=== PATIENT | male | born 1945 | race Caucasian/White ===

== ENCOUNTER → 2017-11-12 | Outpatient (CLI) | payer MEDICARE ==
[2017-11-12 15:07] LABS: HCT 46.3 % (39.0-53.0); HGB 15.9 gm/dL (13.0-17.5); MCH 31.4 pg (25.0-35.0); MCHC 34.3 g/dL (31.0-37.0); MCV 91.7 fL (80.0-100.0); Mean Platelet Volume 6.1; Platelet Count 155 k/uL (150-450); RBC 5.04 m/uL (4.30-5.90); RDW 12.9 % (11.5-15.5); WBC 6.4 k/uL (3.8-10.6)
[2017-11-12 15:08] LABS: Appearance,Urine Clear (Clear); Bilirubin,Urine Negative (Negative); Blood,Urine Small (Negative); Color,Urine Yellow; Glucose,Urine (UA) Negative (Negative); Ketones,Urine Negative (Negative); Leukocyte Esterase,Urine Negative (Negative); Mucus,Urine Rare /hpf; Nitrite,Urine Negative (Negative); Protein,Urine Negative (Negative); RBC,Urine 1 /hpf (0-5); Specific Gravity,Urine 1.019 (1.001-1.035); Urobilinogen,Urine <2.0 mg/dL (<2.0); WBC,Urine 1 /hpf (0-5)
[2017-11-12 15:14] LABS: INR 1.1 (<1.2); Partial Thromboplastin Time 23.5 sec (22.0-30.0); Prothrombin Time 10.4 sec (9.0-12.0)
[2017-11-12 15:39] LABS: Calcium 9.1 mg/dL (8.4-10.2); Total Bilirubin 0.6 mg/dL (0.2-1.3); Total Protein 6.5 g/dL (6.3-8.2)
== END | disposition home or self-care (01) ==
LOC: LABPAT 14:05
PROVIDERS: ATTEND Orthopaedic Surgery
DX: Z01.812 Encounter for preprocedural laboratory examination (principal); M16.11 Unilateral primary osteoarthritis, right hip
CPT/HCPCS: 36415; 80053; 81001; 85027; 85610; 85730; 87070

== ENCOUNTER → 2017-11-13 | Outpatient (CLI) | payer MEDICARE | END | disposition home or self-care (01) | LOC: LABWHC1 14:10 | PROVIDERS: ATTEND Orthopaedic Surgery | DX: Z01.812 Encounter for preprocedural laboratory examination (principal); M16.11 Unilateral primary osteoarthritis, right hip | CPT/HCPCS: 86850; 86870; 86880; 86900; 86901 ==

== ENCOUNTER 2017-11-15 09:50 | Inpatient (IN) | payer MEDICARE ==
[2017-11-05 14:34] VITALS: BMI 27.3
[2017-11-22] MEDS ORDERED: ceFAZolin IN SWFI 2 GM/20 ML SYRINGE IVP ONE (05:00)
[2017-11-22] MEDS ORDERED: DEXAMETHASONE SOD PHOSPHATE 10 MG/ML 1 ML VIAL IV ONE (05:47)
[2017-11-22] MEDS ORDERED: HYDROmorphone 0.5 MG/0.5 ML SYRINGE IVP PRN ×4 (05:47→08:42)
[2017-11-22] MEDS ORDERED: ONDANSETRON 4 MG/2 ML VIAL IVP ONE (05:47)
[2017-11-22] MEDS ORDERED: ROPIVACAINE 246.25 MG, EPINEPHrine 0.5 MG, KETOROLAC 30 MG, cloNIDine HCL/PF 80 MCG, WA... MISCELLANE ONE ×5 (06:12)
[2017-11-22] MEDS: LACTATED RINGERS 1,000 ML IV SCH (06:26)
[2017-11-22] MEDS ORDERED: LIDOCAINE 1% INJ 10MG/ML (20 ML MDV) ONE (06:59)
[2017-11-22] MEDS ORDERED: SODIUM CHLORIDE 0.9% 100 ML BAG ONE (06:59)
[2017-11-22] MEDS ORDERED: SODIUM CHLORIDE 0.9% IRRIG 1,000 ML BTL IRRIGATION ONE (06:59)
[2017-11-22] MEDS ORDERED: PROPOFOL 10 MG/ML 20 ML VIAL IV ONE ×3 (06:59→17:56)
[2017-11-22] MEDS ORDERED: HEPARIN SODIUM,PORCINE 10,000 UNIT/ML 1 ML VIAL ONE (06:59)
[2017-11-22] MEDS ORDERED: MIDAZOLAM 2 MG/2 ML VIAL ONE (06:59)
[2017-11-22] MEDS ORDERED: TRANEXAMIC ACID 1,000 MG/10 ML VIAL ONE (06:59)
[2017-11-22] MEDS ORDERED: diphenhydrAMINE 50 MG/ML 1 ML VIAL ONE (06:59)
[2017-11-22] MEDS ORDERED: LACTATED RINGERS 1,000 ML IV ONE ×2 (07:53→17:56)
--- NOTE | 2017-11-22 08:26 | FL ---
Fluoroscopy HISTORY: Hip replacement 36 seconds fluoroscopy time supplied to the referring clinician. 2 intraoperative C-arm images docum ent the procedure. See dictated report from orthopedic surgery.
--- NOTE | 2017-11-22 08:27 | XR ---
Limited right hip HISTORY: Hip replacement 2 intraoperative C-arm images document the procedure.
--- NOTE | 2017-11-22 08:29 | P.OP ---
Date of Procedure: 11/22/17 Preoperative Diagnosis: Severe osteoarthritis right hip Postoperative Diagnosis: Severe osteoarthritis right hip Procedure(s) Performed: Right total hip arthroplasty with a direct anterior approach Implants: Dempsey and nephew Polarstem size 2 standard Dempsey [employer] Nephew R3, 3 hole acetabular shell, 54 mm [employer]psey [employer] Nephew reflection 6.5 mm cancellus screw, 20 mm, 25 mm [employer]psey [employer] Nephew R3, XLPE 20 acetabular liner [employer]psey [employer] Nephew Oxinium femoral head 36 m, +4 All components were press-fit. The articulation is Oxinium on polyethylene. Anesthesia: spinal Surgeon: Jaren Salvador [employer] Team Leader #1: Radha Acosta Estimated Blood Loss (ml): 150 (65 mL returned with Cell Saver) Pathology: other (Femoral head) Condition: stable Disposition: PACU Indications for Procedure: After failure of conservative treatment we discussed the surgical and nonsurgical treatment options at length. Patient wishes to proceed with a total hip arthroplasty with a direct anterior approach. Complications specific to this procedure were discussed at length, including but not limited to infection, leg length discrepancy, dislocation, and nerve injury. Patient is aware of all these complications and informed consent was obtained Operative Findings: The operative findings are consistent with severe osteoarthritis of the right hip Description of Procedure: Patient was seen and evaluated in the preoperative area, consent was reviewed, and the surgical site was marked with a skin marker. Patient was then brought to the operating room and given prophylactic antibiotics intravenously. 1 g of Tranexamic acid was also given. A spinal anesthetic was administered by the anesthesia department. The patient was then placed on the [place] table with the bony prominences well-padded. The hip area was then prepped and draped in usual sterile fashion. A universal timeout was then performed, which confirmed the patient's name, surgical site, ALLERGIES, and procedure being performed. Next the incision site was located at 1 cm distal and 1 cm lateral to the anterior superior iliac spine. The skin and subcutaneous tissues were sharply incised. Incision was carefully dissected down to the fascia overlying the tensor fascia taj muscle. This fascia was then incised in line with the incision. Next, using blunt finger dissection, the tensor fascia taj muscle was dissected off its investing fascia. The muscle was then carefully retracted laterally with a cobra retractor over the lateral neck of the femur. Next, the circumflex vessels were identified and cauterized using the AquaMantis device. The anterior hip capsule was then exposed. The capsule was then opened and an inverted T fashion. Cobra retractors were then placed intracapsularly. The proximal femur was then visualized. The femoral neck was then osteotomized appropriate level above the lesser trochanter. Small amount of traction was placed with the [place] table. A small wedge of bone was then removed from the remaining femoral head. Next, using a corkscrew femoral head was easily removed from the acetabulum. On gross visual inspection, the femoral head had complete loss of articular cartilage in multiple periarticular osteophytes. Attention was then turned to the acetabulum. the acetabulum was exposed and any remaining labrum was excised. Sequential reaming of the acetabulum was performed using fluoroscopic guidance. When the appropriate size was reached, a trial was then placed. The position and fit of the trial was checked with fluoroscopy. The trial was then removed. Then, using fluoroscopic guidance, the final implant was impacted at 20 of anteversion and 40 of abduction, and fully seated in the acetabulum. 2 screws were then placed in the acetabulum. Again fluoroscopy was used to check position of the screws. Next, the liner was then impacted, with a 20 elevated liner located in the anterior superior quadrant. Component locking was confirmed. Attention was then directed to the femur. With the aid of the [place] table, the femur was externally rotated to approximately 130, extended, and abducted under the opposite leg. A side hook was then placed under the proximal femur, and the side hook elevator was used to elevate the proximal femur. Retractors were then placed. A capsular release was performed, as well as a release of the conjoined tendon, which afforded excellent visualization of the proximal femur. Next, a box osteotome was used to lateralize the proximal femur. A stave mill hand was then used to locate the femoral canal. Sequential broaching was then performed with appropriate size which afforded excellent fixation in the proximal femur. A trial was then placed with appropriate head and neck, and the hip was gently reduced with the aid of the [place] table. Fluoroscopy was then used to check position of the components, as well as to ensure equal leg lengths. The hip was then gently dislocated and the trials were then removed. Final implants were then impacted and the hip was again reduced. Final fluoroscopic x-rays confirmed that the components were in anatomic position, as well as equal leg lengths. The hip was also taken through range of motion, and found to be stable. The hip was then copiously irrigated with antibiotic solution with pulsatile lavage. The hip was then irrigated with Irrisept solution. The soft tissues were then injected with a ropivacaine solution, which consisted of 246.25 mg of ropivacaine, 0.5 mg of epinephrine, 30 mg of Toradol, 80 g of clonidine, and 48.45 mL of sterile water, for a total of 100 mL of fluid injected. A second dose of 1 g of Tranexamic acid was also given. the fascia was then closed with 2-0 strata fix suture. The subcutaneous tissue was closed with 3-0 Vicryl. The subcuticular tissue was closed with 3-0 strata fix suture. The skin was then closed with Dermabond glue and a sterile silver dressing. The patient was then transferred to the recovery room in stable condition. The funeral director's assistant NEPTALI Menon was required due to the complexity of surgery, and the need for skilled surgical resident for positioning, draping, exposure, retraction, and closure of the wound.
[2017-11-22] MEDS ORDERED: DIAZEPAM 5 MG TAB PO PRN ×2 (08:42)
[2017-11-22] MEDS ORDERED: ONDANSETRON 4 MG/2 ML VIAL IVP PRN (08:42)
[2017-11-22] MEDS ORDERED: NALOXONE 0.4 MG/ML 1 ML VIAL IV PRN (08:42)
[2017-11-22] MEDS ORDERED: MAGNESIUM HYDROXIDE 2,400 MG/10 ML CUP PO PRN (08:42)
[2017-11-22] MEDS ORDERED: HYDROcodone/APAP 5-325MG 1 EACH TAB PO PRN (08:42)
--- NOTE | 2017-11-22 09:52 | XR ---
Limited right hip HISTORY: Status post right hip arthroplasty Single frontal view of the right hip Patient is status post right hip arthroplasty. There is anatomic alignment. Lucency present in the so ft tissues is compatible with postop state. IMPRESSION: Orthopedic follow-up.
[2017-11-22] MEDS: MELOXICAM 7.5 MG TAB PO SCH (14:23)
[2017-11-22] MEDS: ASPIRIN 325 MG TAB PO SCH ×2 (14:23→20:00)
[2017-11-22] MEDS: hydrOXYzine PAMOATE 25 MG CAP PO PRN ×2 (14:50→20:01)
[2017-11-22] MEDS: HYDROcodone/APAP 5-325MG 1 EACH TAB PO PRN ×2 (14:50→20:01)
[2017-11-22] MEDS: SODIUM CHLORIDE 0.9% 1,000 ML IV SCH ×2 (14:52→20:00)
[2017-11-22] MEDS: ceFAZolin IN SWFI 2 GM/20 ML SYRINGE IVP SCH (15:30)
--- NOTE | 2017-11-22 17:28 | XR ---
EXAMINATION TYPE: XR Hip Limited RT DATE OF EXAM: 11/22/2017 COMPARISON: Today HISTORY: Hadley a pop TECHNIQUE: Single view FINDINGS: There is a lateral superior dislocation of the prosthetic femoral head. No fracture seen. IMPRESSION: Dislocated hip prosthesis.
[2017-11-22] MEDS ORDERED: SUCCINYLCHOLINE CHLORIDE 100 MG/5 ML SYR IV ONE (17:56)
--- NOTE | 2017-11-22 18:24 | P.OP ---
Date of Procedure: 11/22/17 Preoperative Diagnosis: Dislocation right total hip arthroplasty Postoperative Diagnosis: Dislocation right total hip arthroplasty Procedure(s) Performed: Close reduction right total hip arthroplasty Anesthesia: MAC Surgeon: Jaren Salvador Wallpaper Consultant #1: Radha Acosta Pathology: none sent Condition: stable Disposition: PACU Indications for Procedure: This is a 72-year-old gentleman that had a right total hip arthroplasty performed earlier today. While the patient was up and walking after surgery, he became lightheaded and has a set him down he experienced immediate pain in his right hip. X-rays demonstrated a dislocation of his right total hip arthroplasty. After discussing the treatment options with him and his at length, I recommended a close reduction of his right hip under anesthesia. Informed consent was obtained. Operative Findings: The operative findings are consistent with a dislocation of right total hip arthroplasty. Should be noted that the hip was extremely difficult to relocate and was stable throughout all range of motion after reduction. Description of Procedure: The patient was seen in the preoperative area consent was reviewed and operative site was marked with a skin marker. Patient was then brought to the operating room and placed on the operating room table. A sedative anesthetic was administered by the anesthesia department. A universal timeout was then performed which confirmed the patient's name, surgical site, ALLERGIES, and consent. After adequate anesthesia was administered, close reduction of the right hip was performed. This was done with fluoroscopic guidance. The hip was extremely difficult to reduce, and required multiple attempts under fluoroscopy in order to get it reduced. It reduced with an audible clunk. After reduction , the hip was taken through a full range of motion under fluoroscopy and was found to be stable. The patient was placed in abductor pillow and transferred recovery room stable condition. The clinical medical assistant NEPTALI Menon was required due the complexity of the reduction and the need for skilled clinical medical assistant during the reduction.
[2017-11-22] MEDS ORDERED: SODIUM CHLORIDE 0.9% 1,000 ML IV ONE (18:33)
[2017-11-22 19:16] LABS: Basophils % (A) 0 %; Eosinophils % (A) 0 %; HGB 13.4 gm/dL (13.0-17.5); Lymphocytes # (A) 0.5 k/uL (1.0-4.8); Lymphocytes % (A) 4 %; MCH 31.8 pg (25.0-35.0); MCHC 34.5 g/dL (31.0-37.0); MCV 92.2 fL (80.0-100.0); Mean Platelet Volume 6.7; Monocytes # (A) 0.5 k/uL (0-1.0); Monocytes % (A) 4 %; Neutrophils # (A) 10.7 k/uL (1.3-7.7); Neutrophils % (A) 91 %; Platelet Count 150 k/uL (150-450); RBC 4.23 m/uL (4.30-5.90); RDW 12.7 % (11.5-15.5); WBC 11.7 k/uL (3.8-10.6)
[2017-11-22] MEDS ORDERED: DOXAZOSIN 4 MG TAB PO SCH (21:00)
[2017-11-22] MEDS ORDERED: SENNOSIDES-DOCUSATE SODIUM 1 EACH TAB PO SCH (21:00)
[2017-11-23] MEDS: ceFAZolin IN SWFI 2 GM/20 ML SYRINGE IVP SCH (00:51)
[2017-11-23] MEDS: SODIUM CHLORIDE 0.9% 1,000 ML IV SCH ×3 (00:52→11:33)
[2017-11-23] MEDS ORDERED: TRANEXAMIC ACID 1,000 MG in SODIUM CHLORIDE 0.9% 50 ML IVPB ONE ×4 (05:00)
[2017-11-23] MEDS: LACTATED RINGERS 1,000 ML IV SCH (05:18)
--- NOTE | 2017-11-23 07:25 | P.DS ---
Providers Date of admission: 11/22/17 05:39 Expected date of discharge: 11/23/17 Attending physician: Jaren Salvador Consults: 11/22/17 08:42 Consult Physician Routine Consulting Provider: Dayton Lerma Consult Reason/Comments: medical management Do you want consulting provider notified?: Yes Primary care physician: Dayton Lerma - Discharge Diagnosis(es) (1) Primary osteoarthritis of right hip Current Visit: Yes Status: Acute (2) S/P total hip arthroplasty Current Visit: Yes Status: Acute Hospital Course: This is a 72-year-old male with known history of degenerative arthritis of the right hip. The patient presents for evaluation. After discussion and consideration patient elects to proceed with total hip arthroplasty. The patient is seen preoperatively by Dr. Salvador and medically cleared for surgery by their primary care physician. Patient is admitted to [facility] on 11/22/2017 for total hip arthroplasty. The procedures performed without complication or sequelae. The patient is doing well postoperatively. Labs and vital signs are stable on day of discharge. On 11/22/2017 the patient had an episode of dizziness while walking to the bathroom and when he went to sit down he had increased pain in the right hip. An x-ray showed dislocation of the right total hip arthroplasty. Closed reduction of the right hip was performed on 11/22/2017 and the right hip was successfully reduced. On day of discharge patient's hip incision is healing well. There is minimal erythema. There is no drainage noted at this time. There is minimal soft tissue swelling to the hip and thigh. Patient has full foot and ankle motion without difficulty or pain. Neurovascular status to the right lower extremity is intact. Patient is discharged home in good condition. Please see med rec for accurate list of home medications. Plan - Discharge Summary Discharge Rx Participant: Yes New Discharge Prescriptions: New Aspirin 325 mg PO BID #60 tab HYDROcodone/APAP 5-325MG [[place] 5-325] 1 - 2 tab PO Q4-6H PRN #84 tab PRN Reason: Pain Sennosides [Senokot] 1 tab PO BID #60 tablet No Action Ergocalciferol [Vitamin D2] 50,000 unit PO Q14D Atorvastatin [Lipitor] 20 mg PO HS Metoprolol Succinate [Toprol XL] 50 mg PO QAM Doxazosin Mesylate 4 mg PO HS Ibuprofen [Motrin] 200 mg PO DAILY PRN PRN Reason: Pain Aspirin [Adult Low Dose Aspirin EC] 81 mg PO DAILY Discharge Medication List Aspirin [Adult Low Dose Aspirin EC] 81 mg PO DAILY 11/29/15 [History] Atorvastatin [Lipitor] 20 mg PO HS 11/29/15 [History] Doxazosin Mesylate 4 mg PO HS 11/29/15 [History] Ergocalciferol [Vitamin D2] 50,000 unit PO Q14D 11/29/15 [History] Ibuprofen [Motrin] 200 mg PO DAILY PRN 11/29/15 [History] Metoprolol Succinate [Toprol XL] 50 mg PO QAM 11/29/15 [History] Aspirin 325 mg PO BID #60 tab 11/23/17 [Rx] HYDROcodone/APAP 5-325MG [[place] 5-325] 1 - 2 tab PO Q4-6H PRN #84 tab 11/23/17 [ Rx] Sennosides [Senokot] 1 tab PO BID #60 tablet 11/23/17 [Rx] Follow up Appointment(s)/Referral(s): Jaren Salvador DO [Doctor of Osteopathic Medicine] - 2 Weeks Activity/Diet/Wound Care/Special Instructions: Weightbearing as tolerated with walke. Leave dressing intact. Dressing may be removed by home care nurse in 10 days. May shower with dressing on. Continue use of abductor pillow for the next 2-3 weeks while in bed. Follow-up with [facility] in 2 weeks, please call with any questions or concerns [phone] Discharge Disposition: HOME WITH HOME HEALTH SERVICES
[2017-11-23 07:27] LABS: Basophils % (A) 0 %; Eosinophils % (A) 0 %; HCT 39.2 % (39.0-53.0); HGB 13.4 gm/dL (13.0-17.5); Lymphocytes # (A) 1.3 k/uL (1.0-4.8); Lymphocytes % (A) 12 %; MCH 31.7 pg (25.0-35.0); MCHC 34.3 g/dL (31.0-37.0); MCV 92.5 fL (80.0-100.0); Mean Platelet Volume 6.7; Monocytes % (A) 9 %; Neutrophils # (A) 8.5 k/uL (1.3-7.7); Neutrophils % (A) 77 %; Platelet Count 136 k/uL (150-450); RBC 4.24 m/uL (4.30-5.90); RDW 12.9 % (11.5-15.5)
[2017-11-23 07:41] VITALS: BP 126/62; PULSE 75; RESP 18; TEMP 97.9
[2017-11-23] MEDS: ASPIRIN 325 MG TAB PO SCH (07:54)
[2017-11-23] MEDS: MELOXICAM 7.5 MG TAB PO SCH (07:54)
--- NOTE | 2017-11-23 08:54 | FL ---
EXAMINATION TYPE: FL guidance operating room DATE OF EXAM: 11/22/2017 HISTORY: Flouroscopy time 43 seconds of fluoroscopy provided. IMPRESSION: 1. Fluoroscopy time.
[2017-11-23] MEDS ORDERED: NON-FORMULARY DRUG (Aspirin [Adult Low Dose Aspirin Ec] 81 MG) PO SCH (09:00)
[2017-11-23] MEDS ORDERED: METOPROLOL SUCCINATE (ER) 50 MG TAB.ER.24H PO SCH (09:00)
--- NOTE | 2017-11-23 19:02 | CONS ---
CONSULTATION CHIEF COMPLAINT: Arthritis, right hip. HISTORY OF PRESENT ILLNESS: This is the first known admission for this 72-year-old healthy white male who has come in for an elective right hip replacement. He has not had any problems recently covered under review of systems such as headaches, neurologic problems, focal neurologic deficits, confusion, change in vision or hearing, chest pain, cough, hemoptysis, murmurs, rheumatic fever, angina, infarctions, orthopnea, PND, abdominal pain, nausea, vomiting, hematemesis, melena, hematochezia, colitis, diverticulosis, renal failure, hematuria, dysuria, nocturia, etc. Past medical history, family history, personal and social histories reveal that he is ALLERGIC TO STATINS and IODINE. HE CANNOT TAKE CLARITIN. MEDICATIONS: Include: 1. Atorvastatin 20 mg a day, which does not bother him and bother him. 2. Doxazosin 4 mg at bedtime. 3. Metoprolol 50 mg once a day. 4. Bentyl 10 mg 4 times a day p.r.n. 5. Ecotrin 81 mg a day. Surgically, he has had a cholecystectomy. He used to smoke in the past, but does not any longer. PHYSICAL EXAM: Blood pressure 120/70, the pulse 70, respirations 16. He is afebrile. GENERAL: He appeared to be well developed, well nourished, in no acute distress, is well-preserved for his age. His skin color is normal. Skin is dry. Lymph nodes are not enlarged. Head, ears, eyes, nose, mouth and throat were normal. Neck veins not distended. Thyroid is not enlarged and chest is clear. Cardiac demonstrates normal sinus rhythm with no murmurs or extra sounds. The abdomen is soft and nontender without any visceromegaly or masses. Bowel sounds are present. Extremities are normal. Neurologically, he is intact. IMPRESSION: 1. Arthritis of the right hip. 2. Hypertension. RECOMMENDATION: None. His surgical risk is quite low. MMODL / IJN: [id number] /
== END 2017-11-23 13:25 | disposition home health service (06) | DRG 470 ==
LOC: 2ORMAIN 11-22 05:39 → 3SUR 11-22 09:17
PROVIDERS: ADMIT Orthopaedic Surgery; ATTEND Orthopaedic Surgery
PROC: 0SW9XJZ Revision of Synthetic Substitute in Right Hip Joint, External Approach (ICD-10-PCS; 2017-11-22)
PROC: 0SR906A Replacement of Right Hip Joint with Oxidized Zirconium on Polyethylene Synthetic Substitute, Uncemented, Open Approach (ICD-10-PCS; principal; 2017-11-22 07:00)
DX: M16.11 Unilateral primary osteoarthritis, right hip (principal); T84.020A Dislocation of internal right hip prosthesis, initial encounter; I10 Essential (primary) hypertension; Y79.2 Prosthetic and other implants, materials and accessory orthopedic devices associated with adverse incidents; H91.90 Unspecified hearing loss, unspecified ear; Z88.8 Allergy status to other drugs, medicaments and biological substances; Z79.899 Other long term (current) drug therapy; E78.5 Hyperlipidemia, unspecified
CPT/HCPCS: 73501; 85025; 86850; 86870; 86880; 86900; 86901; 88300

== ENCOUNTER → 2018-12-21 | Outpatient (CLI) | payer MEDICARE ==
--- NOTE | 2018-12-21 13:30 | US ---
EXAMINATION TYPE: US carotid duplex BILAT DATE OF EXAM: 12/21/2018 COMPARISON: NONE CLINICAL HISTORY: H53.121 Transient visual loss, right eye. EXAM MEASUREMENTS: RIGHT: Peak Systolic Velocity (PSV) cm/sec ----- Right CCA: 103.9 ----- Right ICA: 95.3 ----- Right ECA: 75.4 ICA/CCA ratio: 0.9 RIGHT: End Diastole cm/sec ----- Right CCA: 17.2 ----- Right ICA: 32.6 ----- Right ECA: 0.0 LEFT: Peak Systolic Velocity (PSV) cm/sec ----- Left CCA: 88.6 ----- Left ICA: 95.3 ----- Left ECA: 101.7 ICA/CCA ratio: 1.1 LEFT: End Diastole cm/sec ----- Left CCA: 14.9 ----- Left ICA: 30.5 ----- Left ECA: 17.6 VERTEBRALS (direction of flow): Right Vertebral: Antegrade Left Vertebral: Antegrade Rhythm: Normal No significant velocity elevations. Mild plaque. IMPRESSION: Atheromatous plaquing without significant flow-limiting stenosis. Criteria for Assigning % of Stenosis / Diameter reduction (Estimation based on the indirect measurements of the internal carotid artery velocities (ICA PSV). 1. Normal (no stenosis)=ICA PSV < 125 cm/s: ratio < 2.0: ICA EDV<40 cm/s. 2. Less than 50% stenosis=ICA PSV < 125 cm/s: ratio < 2.0: ICA EDV<40 cm/s. 3. 50 to 69% stenosis=ICA PSV of 125 to 230 cm/s: ration 2.0 ? 4.0: ICA EDV 40-100 cm/s. 4. Greater than 70% stenosis to near occlusion= ICA PSV > 230 cm/s: ratio > 4.0: ICA EDV > 100 cm/s. 5. Near occlusion= ICA PSV velocities may be low or undetectable: variable ratio and ICA EDV. 6. Total occlusion=unable to detect flow.
--- NOTE | 2018-12-21 14:09 | MR ---
EXAMINATION TYPE: MR brain wo/w con DATE OF EXAM: 12/21/2018 COMPARISON: NONE HISTORY: Transient visual loss, right eye TECHNIQUE: Multiplanar, multisequence images of the brain and brainstem is performed without and with IV contras t, utilizing 8.5 mL intravenous Gadavist . FINDINGS: Diffusion weighted images demonstrate no evidence of a recent infarct or other diffusion ab normality. There is no worrisome extra-axial fluid collection. There is mild ventricular and sulcal prominence. There are scattered foci of T2 hyperintensity seen throughout the white matter bilaterall y. Approximately 10 scattered lesions are seen. Largest measures 4 to 5 mm posterior right frontal lo be at level of montoya radiata axial image 19. Lesions are nonspecific in appearance and distribution. They're most likely on the basis of chronic small vessel ischemic change in patient of this age. Midline structures demonstrate normal morphology. The craniocervical junction appears within normal limits. Post contrast images demonstrate no abnormal enhancement. There is however small focus of no nenhancement posterior aspect of the pituitary gland sagittal image 81 along posterior aspect not kiera bisi identified on axial sagittal images. The dural venous sinuses appear patent. The visualized sinu ses are clear . Nasal septum is deviated to left of midline. Globes are intact bilaterally. Suprasell ar cistern is maintained. IMPRESSION: 1. No MRI evidence for recent infarct or suspicious finding to account for transient right-sided visi on loss. Advise ophthalmology referral if has not been performed. 2 background of mild diffuse cerebral atrophy and chronic small vessel ischemic changes. 3. Small focus of nonenhancement posterior pituitary gland, cannot exclude microadenoma on the approp riate clinical setting. Correlate clinically and with appropriate lab values. Need to further investi gate by dedicated pituitary MRI should be based on clinical correlation.
== END | disposition home or self-care (01) ==
LOC: RADUSWWP 12:10
PROVIDERS: ATTEND Family Medicine
DX: G31.9 Degenerative disease of nervous system, unspecified (principal); I67.82 Cerebral ischemia; I65.23 Occlusion and stenosis of bilateral carotid arteries; G43.909 Migraine, unspecified, not intractable, without status migrainosus; Z91.041 Radiographic dye allergy status; Z88.8 Allergy status to other drugs, medicaments and biological substances
CPT/HCPCS: 93880; 70553; A9585

== ENCOUNTER → 2019-02-01 | Outpatient (CLI) | payer MEDICARE ==
--- NOTE | 2019-02-01 14:38 | MR ---
EXAMINATION TYPE: MR angio head wo con DATE OF EXAM: 02/01/2019 COMPARISON: MRA brain dated 12/21/2018 HISTORY: Dizziness / Visual disturbance / FU TECHNIQUE: MR imaging of the intracranial vasculature and pala of [place] was obtained using time-of -flight imaging without intravenous contrast. Three-D reformatted imaging was performed of the major arterial intracranial vasculature. FINDINGS: The right vertebral artery is dominant. 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 The left superior cerebellar artery closely abuts th e left posterior cerebral artery and therefore impression on the 3rd cranial nerve is possible. Ophthalmic arteries appear patent at least in the visualized portions proximally. Internal carotid ar teries demonstrate mild peripheral irregularity from atherosclerosis in the cavernous and supraclinoi d portions. No occlusion, hemodynamically significant stenosis nor aneurysmal outpouching of the ante rior nor posterior circulation. IMPRESSION: 1. 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 This is noted to course directly adjacent to the left superior cerebellar artery and therefore impression on the left greater than is possible. Correlate with the stated visual disturbance (not described in the given h istory). 2. Mild atheromatous plaquing of the cavernous and supraclinoid portions of the bilateral internal ca rotid arteries. No hemodynamically significant stenosis, focal occlusion, nor aneurysmal outpouching.
== END | disposition home or self-care (01) ==
LOC: RADMRIMAIN 12:37
PROVIDERS: ATTEND Family Medicine
DX: I65.23 Occlusion and stenosis of bilateral carotid arteries (principal); H53.9 Unspecified visual disturbance; Z88.3 Allergy status to other anti-infective agents; Z88.8 Allergy status to other drugs, medicaments and biological substances
CPT/HCPCS: 70544

== ENCOUNTER → 2019-02-14 | Outpatient (CLI) | payer MEDICARE ==
--- NOTE | 2019-02-15 09:29 | ECHOF ---
Referral Reason:G45.9 TIA MEASUREMENTS -------- HEIGHT: 175.3 cm WEIGHT: 83.9 kg BP: 156/74 RVIDd: 3.3 cm (< 3.3) IVSd: 1.0 cm (0.6 - 1.1) LVIDd: 3.7 cm (3.9 - 5.3) LVPWd: 0.9 cm (0.6 - 1.1) IVSs: 1.4 cm LVIDs: 2.6 cm LVPWs: 1.3 cm LA Diam: 2.8 cm (2.7 - 3.8) LAESV Index (A-L): 20.07 ml/m Ao Diam: 3.3 cm (2.0 - 3.7) AV Cusp: 1.9 cm (1.5 - 2.6) MV EXCURSION: 14.881 mm (> 18.000) MV EF SLOPE: 46 mm/s (70 - 150) EPSS: 0.6 cm MV E Javier: 0.58 m/s MV DecT: 268 ms MV A Javier: 0.93 m/s MV E/A Ratio: 0.62 AR PHT: 479 ms RAP: 5.00 mmHg RVSP: 27.98 mmHg TAPSE: 20.28 mm FINDINGS -------- Sinus rhythm. This was a technically adequate study. The left ventricular size is normal. Left ventricular wall thickness is normal. Overall left vent ricular systolic function is normal with, an EF between 60 - 65 %. The right ventricle is mildly enlarged. Normal LA size by volume 22+/-6 ml/m2. The right atrium is normal in size. Contrast study was performed with 2 iv injections of 8 ccs of agitated normal saline, at rest, and wi th cough. Interatrial and interventricular septum intact. There is mild aortic valve sclerosis. There is mild aortic regurgitation. There is trace to mild mitral regurgitation. Mild tricuspid regurgitation present. Right ventricular systolic pressure is normal at < 35 mmHg. Trace/mild (physiologic) pulmonic regurgitation. The aortic root size is normal. Normal inferior vena cava with normal inspiratory collapse consistent with estimated right atrial pre ssure of 5 mmHg. There is no pericardial effusion. CONCLUSIONS -------- 1. Sinus rhythm. 2. This was a technically adequate study. 3. The left ventricular size is normal. 4. Left ventricular wall thickness is normal. 5. Overall left ventricular systolic function is normal with, an EF between 60 - 65 %. 6. The right ventricle is mildly enlarged. 7. Normal LA size by volume 22+/-6 ml/m2. 8. The right atrium is normal in size. 9. Contrast study was performed with 2 iv injections of 8 ccs of agitated normal saline, at rest, and with cough. 10. Interatrial and interventricular septum intact. 11. There is mild aortic valve sclerosis. 12. There is mild aortic regurgitation. 13. There is trace to mild mitral regurgitation. 14. Mild tricuspid regurgitation present. 15. Right ventricular systolic pressure is normal at < 35 mmHg. 16. Trace/mild (physiologic) pulmonic regurgitation. 17. The aortic root size is normal. 18. Normal inferior vena cava with normal inspiratory collapse consistent with estimated right atrial pressure of 5 mmHg. 19. There is no pericardial effusion. REPAIR ARMATURE WINDER: Helena Rose RDCS
== END | disposition home or self-care (01) ==
LOC: RADECHMAIN 13:31
PROVIDERS: ATTEND Psychiatry & Neurology Neurology
DX: I08.3 Combined rheumatic disorders of mitral, aortic and tricuspid valves (principal)
CPT/HCPCS: 93306

== ENCOUNTER → 2019-02-16 | Outpatient (CLI) | payer MEDICARE ==
--- NOTE | 2019-02-17 01:37 | MR ---
EXAMINATION TYPE: MR angio neck wo con DATE OF EXAM: 02/16/2019 COMPARISON: HISTORY: Dizziness, visual disturbance Standard multiplanar, multisequence MRI departmental protocol Multiplanar, multisequence images of the cervical carotid and vertebral arteries were acquired. MR an giographic images were obtained without contrast. FINDINGS: There is arterial flow demonstrated in both vertebral arteries which are fairly symmetric. There is arterial flow in the vertebrobasilar artery system. There is arterial flow in both common internal and external carotid arteries and the carotid artery b ifurcations. Vessels appear widely patent. I see no evidence of stenosis. There is no evidence of ane urysm or dissection. IMPRESSION: Negative MR angiogram of the neck.
== END | disposition home or self-care (01) ==
LOC: RADMRIMAIN 15:39
PROVIDERS: ATTEND Psychiatry & Neurology Neurology
DX: H53.2 Diplopia (principal)
CPT/HCPCS: 70547

== ENCOUNTER → 2021-10-08 | Outpatient (CLI) | payer MEDICARE ==
--- NOTE | 2021-10-08 10:39 | CA ---
Exercise Stress Test Report Name: Cheko Dempsey Exam Date: 10/08/2021 09:02 Exam Location: [facility] Ht (in): 69 Wt (lb): 185 BSA: 2.00 Ordering Phys: Dayton Lerma MD Referring Phys: susana,, Technologist: ALVA,, Age: 75 Gender: M : 1945 Procedure CPT: Indications: I10 HTN, M54.2 NECK PAIN, Z82.49 CAD ICD-10 Codes: Patient History: HTN, TIA, HIGH CHOL, FAMILY HISTORY, FORMEBR SMOKER, CATH Medications: METROPROLOL, ATORVASTATIN, VIT D2, FINASTERIDE, TAMSULOSIN, ADVIL Meds past 24 hrs: Pretest Chest Pain: STRESS TEST Jair Protocol Exercise Duration (min:sec): 08:[address] Depressions (mm): Angina Score: Taveras Score: Resting HR (bpm): 92 Peak HR (bpm): 145 Resting BP (mmHg): 158 / 82 Peak BP (mmHg): 184 / 78 MPHR: 145 Target HR: 123 % MPHR: 100 METS: 10.3 Total Dose: Peak Dose: Atropine: Double Product: 60779 BP Response: Stress Termination: Reached target heart rate Stress Symptoms: Stress Summary: ECG ANALYSIS Resting ECG: Stress ECG: CONCLUSIONS Excellent exercise tolerance Excellent augmentation in the blood pressure and heart rate response to exercise The patient achieved 100% of maximum productive heart rate Normal EKG in response to exercise Dr. Shayne Dinh MD (Electronically Signed) Final Date: 08 October 2021 10:37
== END | disposition home or self-care (01) ==
LOC: RADNMMAIN 08:36
PROVIDERS: ATTEND Family Medicine
DX: M54.2 Cervicalgia (principal); I10 Essential (primary) hypertension; Z82.49 Family history of ischemic heart disease and other diseases of the circulatory system
CPT/HCPCS: 93017

== ENCOUNTER → 2024-11-03 | Outpatient (CLI) | payer OTHER ==
--- NOTE | 2024-11-03 16:32 | CA ---
Transthoracic Echo Report Name: Cheko Dempsey Age: 79 Gender: M : 1945 Exam Date: 11/03/2024 13:54 Exam Location: [facility] [place] [facility] Ht (in): 69 Wt (lb): 200 Ordering Physician: Jaren Lundberg DO Attending/Referring Phys: Kathi Hair [facility] Software Validation Engineer Jes Hernandez NICOLASA Procedure CPT: Indications: R55 SYNCOPE AND COLLAPSE Cardiac Hx: Technical Quality: Fair Contrast 1: Total Dose (mL): Contrast 2: Total Dose (mL): MEASUREMENTS (Male / Female) Normal Values 2D ECHO LV Diastolic Diameter PLAX 3.9 cm 4.2 - 5.9 / 3.9 - 5.3 cm LV Systolic Diameter PLAX 2.5 cm IVS Diastolic Thickness 1.3 cm 0.6 - 1.0 / 0.6 - 0.9 cm LVPW Diastolic Thickness 1.0 cm 0.6 - 1.0 / 0.6 - 0.9 cm LV Relative Wall Thickness 0.6 RV Internal Dim ED PLAX 2.5 cm LVOT Diameter 2.1 cm LA Systolic Diameter LX 3.2 cm 3.0 - 4.0 / 2.7 - 3.8 cm LV Diastolic Volume MOD BP 65.1 cm??? 67 - 155 / 56 - 104 cm??? LV Systolic Volume MOD BP 16.3 cm??? - 58 / 19 - 49 cm??? LV Ejection Fraction MOD BP 75.0 % >= 55 % LV Cardiac Index MOD BP 1769.6 cm???/min???m??? LV Diastolic Volume MOD 4C 70.5 cm??? LV Systolic Volume MOD 4C 21.4 cm??? LV Ejection Fraction MOD 4C 69.7 % LV Cardiac Index MOD 4C 1780.2 cm???/min???m??? LV Diastolic Length 4C 8.0 cm LV Systolic Length 4C 6.3 cm LV Diastolic Volume MOD 2C 49.9 cm??? LV Systolic Volume MOD 2C 10.6 cm??? LV Ejection Fraction MOD 2C 78.7 % LV Cardiac Index MOD 2C 1423.7 cm???/min???m??? LV Diastolic Length 2C 6.6 cm LV Systolic Length 2C 5.3 cm LA Volume 34.8 cm??? 18 - 58 / 22 - 52 cm??? LA Volume Index 16.4 cm???/m??? 16 - 28 cm???/m??? Ascending Aorta Diameter 3.3 cm M-MODE Aortic Root Diameter MM 3.7 cm AV Cusp Separation MM 1.7 cm DOPPLER AV Peak Velocity 116.3 cm/s AV Peak Gradient 5.4 mmHg AI Peak Velocity 333.6 cm/s AI Peak Gradient 44.5 mmHg AI Pressure Half Time 518.9 ms LVOT Peak Velocity 106.8 cm/s LVOT Peak Gradient 4.6 mmHg AV Area Cont Eq pk 3.1 cm??? MV Area PHT 3.5 cm??? Mitral E Point Velocity 77.7 cm/s Mitral A Point Velocity 89.0 cm/s Mitral E to A Ratio 0.9 MV Deceleration Time 217.0 ms TR Peak Velocity 279.1 cm/s TR Peak Gradient 31.2 mmHg Right Ventricular Systolic Press 36.2 mmHg FINDINGS Left Ventricle Left ventricular ejection fraction is estimated at 55-60 %. Mildly increased septal wall thickness. Normal Left ventricular size, systolic function with no obvious regional wall motion abnormalities. Right Ventricle Normal right ventricular size and function. Mild pulmonary hypertension. Right ventricular systolic pressure estimated at 36 mm hg. Right Atrium Normal right atrial size. No right atrial thrombus or mass seen. Left Atrium Normal left atrial size. No left atrial thrombus or mass present. Mitral Valve Mitral valve thickened. No mitral stenosis. Mild mitral regurgitation. Aortic Valve Thickened aortic valve without stenosis. mild aortic regurgitation. Tricuspid Valve Tricuspid valve not well visualized. Mild tricuspid regurgitation. Pulmonic Valve Structurally normal pulmonic valve. No pulmonic regurgitation. Pericardium Echo free space anterior to the right ventricle likely represents a fat pad. Aorta upper limits of normla size aortic root. normal proximal ascending aorta. CONCLUSIONS 1. Normal left ventricular size and systolic function 2. Mild mitral regurgitation 3. Mild aortic regurgitation 4. Mild tricuspid regurgitation with mild pulmonary hypertension Previewed by: Dr. Roberto Flood MD (Electronically Signed) Final Date: 03 November 2024 16:31
== END | disposition home or self-care (01) ==
LOC: RADECHMAIN 13:37
PROVIDERS: ATTEND Family Medicine
DX: I08.3 Combined rheumatic disorders of mitral, aortic and tricuspid valves (principal)
CPT/HCPCS: 93306